=== PATIENT | male | born 1995 | race Hispanic/Latino ===

== ENCOUNTER → 2020-05-21 | Outpatient (CLI) | payer OTHER ==
--- NOTE | 2020-05-21 07:20 | REPVR ---
PROCEDURE INFORMATION: Exam: CT Maxillofacial Without Contrast, Sinus Exam date and time: 05/21/2020 7:01 AM Age: 24 years old Clinical indication: Condition or disease; Other: Deviated nasal septum TECHNIQUE: Imaging protocol: CT Maxillofacial without contrast. Focus on the sinuses. Radiation optimization: All CT scans at this facility use at least one of these dose optimization techniques: automated exposure control; mA and/or kV adjustment per patient size (includes targeted exams where dose is matched to clinical indication); or iterative reconstruction. COMPARISON: No relevant prior studies available. FINDINGS: Frontal sinuses: There is minimal inferior frontal mucosal thickening. The frontoethmoidal recesses are patent. No air-fluid levels. Ethmoid air cells: There is mild mucosal thickening. No air-fluid levels. Sphenoid sinuses: Normal. No air-fluid levels. Maxillary sinuses: There is mild polypoid mucosal thickening along the floors of the maxillary sinuses. The maxillary sinus infundibular are obscured by Sindi cells and mucosal thickening. No air-fluid levels. Ostiomeatal units are patent. Nasal cavity/Septum: There is a wilder bullosa of the right middle turbinate. There is leftward nasal septal deviation with a spur. There is polypoid soft tissue within the left posterior nasal cavity. Orbital cavity: Orbits are normal. Globes are unremarkable. Bones/joints: Unremarkable. Soft tissues: Unremarkable. IMPRESSION: Sinus mucosal disease with suspected superimposed nasal polyposis. Electronically signed by: Mica Cohen On 05/21/2020 07:20:48 AM
== END ==
LOC: M RAD 06:53
PROVIDERS: ATTEND Specialist
DX: J34.1 Cyst and mucocele of nose and nasal sinus (principal)